=== PATIENT | female | born 2000 | race Caucasian/White ===

== ENCOUNTER → 2020-11-25 16:52 | Outpatient (BNVA) | payer SELFPAY | PROVIDERS: Family Provider Nurse Practitioner; PCP Nurse Practitioner; Visit Provider Nurse Practitioner | DX: R30.0 Dysuria (principal); N39.0 Urinary tract infection, site not specified | CPT/HCPCS: 81000 ==

== ENCOUNTER → 2022-02-17 12:18 | Outpatient (BNVA) | payer MEDICAID, SELFPAY | PROVIDERS: Family Provider Nurse Practitioner; PCP Nurse Practitioner; Visit Provider Nurse Practitioner Family | DX: R39.9 Unspecified symptoms and signs involving the genitourinary system (principal); N39.0 Urinary tract infection, site not specified | CPT/HCPCS: 81000 ==

== ENCOUNTER → 2022-03-01 08:28 | Outpatient (BNVA) | payer MEDICAID, SELFPAY | PROVIDERS: Family Provider Nurse Practitioner; PCP Nurse Practitioner; Visit Provider Psychiatry & Neurology Psychiatry | DX: F60.3 Borderline personality disorder (principal); F43.12 Post-traumatic stress disorder, chronic; F33.2 Major depressive disorder, recurrent severe without psychotic features; F41.1 Generalized anxiety disorder; N39.0 Urinary tract infection, site not specified | CPT/HCPCS: 99204 ==

== ENCOUNTER → 2022-03-30 15:12 | Outpatient (BNVA) | payer MEDICAID, SELFPAY | PROVIDERS: Family Provider Nurse Practitioner; PCP Nurse Practitioner; Visit Provider Psychiatry & Neurology Psychiatry | DX: F41.1 Generalized anxiety disorder (principal); F33.2 Major depressive disorder, recurrent severe without psychotic features; F43.12 Post-traumatic stress disorder, chronic; F60.3 Borderline personality disorder | CPT/HCPCS: 99214 ==

== ENCOUNTER → 2022-05-18 08:22 | Outpatient (BNVA) | payer MEDICAID, SELFPAY | PROVIDERS: Family Provider Nurse Practitioner; PCP Nurse Practitioner; Visit Provider Obstetrics & Gynecology | DX: Z12.4 Encounter for screening for malignant neoplasm of cervix (principal) | CPT/HCPCS: 81025; 88175 ==

== ENCOUNTER → 2023-01-10 14:33 | Outpatient (BNVA) | payer MEDICAID, SELFPAY | PROVIDERS: Family Provider Nurse Practitioner; Visit Provider Family Medicine | DX: R00.2 Palpitations (principal); Z13.6 Encounter for screening for cardiovascular disorders | CPT/HCPCS: 80053; 80061; 84443; 85025 ==

== ENCOUNTER 2023-02-06 22:23 | Emergency (ER) | payer MEDICAID, SELFPAY ==
[2023-02-06 22:30] VITALS: BP 143/93; PULSE 99; RESP 20; TEMP 36.8; O2SAT 96; BMI 34.4
--- NOTE | 2023-02-06 22:49 | W.ED.CHESTPA ---
HPI - Chest Pain General: Chief Complaint: Chest Pain Stated Complaint: Chest Pains Time Seen by Provider: 02/06/23 22:34 History of Present Illness: 22-year-old female comes in today with chest discomfort. Patient appears nontoxic. Patient has a history of chest pain that has been going on since August. Patient is scheduled to see dry cleaning machine operator on . Patient appears in mild pain. Patient has a history of anxiety, major depressive disorder, PTSD, and borderline personality. Associated symptoms: Deny dyspnea, fever(s), nausea or vomiting Review of Systems General: Reports: 10 or more systems reviewed and unremarkable except in HPI and below Const: Denies: fever(s) Card: Denies: chest pain Resp: Denies: dyspnea GI: Denies: nausea or vomiting : Denies: difficulty voiding Musc: Denies: back pain Skin/Breast: Denies: rash PFSH ED PFSH: Medical History (Updated 02/06/23 @ 23:53 by SIENA Jonas) Chiari malformation Type 1 - Diagnosed in 2017 - by [facility] Surgical History History of tonsillectomy Family History Grandmother Diabetes paternal Hypertension paternal Breast cancer, Onset Age: 56 paternal Father Hyperlipidemia Hypertension Denies family history of Colon cancer Ovarian cancer Clotting disorder Heart disease Anesthesia complication Bleeding disorder Uterine cancer Thyroid condition Stroke Social History Smoking and tobacco status: current every day smoker e-cigarettes E-Cigarette Details: vaporizer device and with nicotine E-cig/vape details: Refill/4 days. Quit status (tobacco): not considering quitting Second hand smoke exposure: No Smoking risk assessment/counseling performed?: No Alcohol intake: never Desire information about alcohol rehabilitation?: No Counseling given: No Desire information about substance/drug rehabilitation?: No Counseling given: No Physical Exam Const: COMMON NORMALS: alert HENMT: COMMON NORMALS: normocephalic HEAD & SCALP: normocephalic Neck/C-Spine: COMMON NORMALS: full ROM Resp: COMMON NORMALS: normal respiratory effort and clear to auscultation bilaterally AUSCULTATION: clear to auscultation bilaterally Cardio: COMMON NORMALS: regular rate, regular rhythm, S1 normal heart sound present and S2 normal heart sound present RATE: regular rate RHYTHM: regular rhythm HEART SOUNDS: S1 normal heart sound present and S2 normal heart sound present GI: COMMON NORMALS: Soft to palpation and non-tender PALPATION: Yes Soft to palpation : COMMON NORMALS: Yes no CVA tenderness BLADDER/KIDNEY EXAM: Yes no CVA tenderness Back/Pelvis: COMMON NORMALS: no CVA tenderness and thoracic and lumbar spine normal to inspection Extremity: COMMON NORMALS: no pedal edema Neuro: SENSORIUM/ORIENTATION: Yes alert Skin: COMMON NORMALS: turgor normal GENERAL SKIN EXAM: turgor normal Course Vital Signs: Vital signs: Vital Signs Temperature 98.2 F 02/06/23 22:30 Pulse Rate 86 02/06/23 23:02 Respiratory Rate 20 H 02/06/23 23:02 Blood Pressure 136/72 02/06/23 23:02 Pulse Oximetry 97 02/06/23 23:02 Oxygen Delivery Me thod 02/06/23 22:30 MDM - Chest Pain Medical Decision Making Patient presents with chest discomfort and pain. On exam patient appears nontoxic. Lungs are clear to auscultation. Heart rates regular in the 90s. No edema is noted in the extremities. Patient seems anxious. Differential diagnosis includes but not limited to anxiety, myocarditis, pleurodynia, malingering. EKG showed a sinus tachycardia with a rate in the 100s. Vital signs are normal except for some mild elevation in blood pressure. Chest x-ray was unremarkable. Laboratory values were unremarkable. Troponin, lipase, BNP were all within normal limits. Patient is stable to go home. Recommended continue evaluation with dry cleaning machine operator as scheduled. Return to ER as needed for worsening symptoms or new concerns. Patient reported understanding. Trial of Ativan 1 mg was given with no resolution of discomfort. Lab Data 02/06/23 22:44 02/06/23 22:44 Radiology Impressions Chest X-Ray 02/06/23 22:57 IMPRESSION: No acute findings. Laboratory Results WBC 7.6 10^3/uL (4.0-10.0) 02/06/23 22:44 RBC 4.57 10^6/uL (4.1-5.3) 02/06/23 22:44 Hgb 13.1 g/dL (11.5-15.3) 02/06/23 22:44 Hct 39.8 % (37.0-47.0) 02/06/23 22:44 MCV 87.1 fl (81-99) 02/06/23 22:44 MCH 28.7 pg (28.0-34.0) 02/06/23 22:44 MCHC 32.9 g/dL (30.0-36.0) 02/06/23 22:44 RDW 12.6 % (12.1-15.1) 02/06/23 22:44 Plt Count 284 10^3/cmm (130-400) 02/06/23 22:44 MPV 9.7 fL (7.4-10.4) 02/06/23 22:44 Neut % (Auto) 59.2 % 02/06/23 22:44 Lymph % (Auto) 32.8 % 02/06/23 22:44 [place] % (Auto) 6.2 % 02/06/23:44 Eos % (Auto) 1.4 % 02/06/23:44 Baso % (Auto) 0.3 % 02/06/23:44 Neut # (Auto) 4.49 10^3/uL (1.8-7.7) 02/06/23:44 Lymph # (Auto) 2.5 10^3/uL (0.8-4.8) 02/06/23:44 [place] # (Auto) 0.5 10^3/uL (0.2-0.9) 02/06/23:44 Eos # (Auto) 0.1 10^3/uL (0.0-0.8) 02/06/23 22:44 Baso # (Auto) 0.0 10^3/uL (0.0-0.1) 02/06/23:44 Nucleated RBC % (auto) 0 % 02/06/23:44 Nucleated RBCs # 0.0 /100WBC 02/06/23 22:44 Sodium 141 mmol/L (136-145) 02/06/23 22:44 Potassium 4.0 mmol/L (3.5-5.1) 02/06/23 22:44 Chloride 108 mmol/L (98-107) H 02/06/23 22:44 Carbon Dioxide 20 mmol/L (22-29) L 02/06/23 22:44 Anion Gap 17.0 (5-19) 02/06/23 22:44 BUN 11 mg/dL (6-20) 02/06/23 22:44 Creatinine 0.9 mg/dL (0.5-0.9) 02/06/23 22:44 GFR Calculation 76.9 mL/min (90-130) L 02/06/23 22:44 Glucose 78 mg/dL (65-115) 02/06/23 22:44 Calculated Osmolality 290 mOsm/kg (285-295) 02/06/23 22:44 Calcium 9.7 mg/dL (8.5-10.5) 02/06/23 22:44 Total Bilirubin 0.4 mg/dL (0.15-1.2) 02/06/23 22:44 AST 11 U/L (0-32) 02/06/23 22:44 ALT 9 U/L (0-33) 02/06/23 22:44 Alkaline Phosphatase 72 U/L (35-105) 02/06/23 22:44 Troponin T Gen 5 ng/L 8 ng/L (0-10) 02/06/23 22:44 C-Reactive Protein 3.0 mg/L (0.0-4.9) 02/06/23 22:44 NT-Pro-B Natriuret Pep 36 pg/mL (0-125) 02/06/23 22:44 Total Protein 6.6 g/dL (6.6-8.7) 02/06/23 22:44 Albumin 4.2 g/dL (3.5-5.2) 02/06/23 22:44 Globulin 2.4 g/dL (1.3-4.6) 02/06/23 22:44 Lipase 24 U/L (13-60) 02/06/23 22:44 Discharge Plan Discharge Patient Disposition: Home Clinical Impression: Chest pain Qualifiers: Chest pain type: unspecified Qualified Code(s): R07.9 - Chest pain, unspecified Condition: Stable Prescriptions: No Action acetaminophen [Tylenol Extra Strength] 500 mg tablet 1,000 mg PO BID PRN (Reason: fever or pain) Nexplanon 68 mg implant subdermal hydroxyzine HCl 50 mg tablet 100 mg PO .HS PRN (Reason: insomnia) Qty: 60 2RF sertraline [Zoloft] 50 mg tablet 50 mg PO DAILY Qty: 30 2RF Discharge Orders: Discharge ED (Routine); Ordered 02/06/23 Ordered By: Garth Zamarripa Referrals: Chana Santacruz DO [Primary Care Provider] - Discharge Diet: Usual diet Patient Instructions: Chest Pain (ED) Activity Restrictions/Additional Instructions: Home and rest. Drink lots of fluids. Follow-up with primary care in the morning. Return to ED for worsening symptoms such as severe chest pain, increased shortness of breath, blood in sputum, or high fever greater than 100.4. Follow-up with cardiac appointment as scheduled. Coding Level of Care Code ED Pin Inserter Regulator for Caroline Wilson
--- NOTE | 2023-02-06 22:57 | XRR_ITS ---
PROCEDURE INFORMATION: Exam: XR Chest Exam date and time: 02/06/2023 11:02 PM Age: 22 years old Clinical indication: Sternal or substernal pain; Additional info: Chest pain TECHNIQUE: Imaging protocol: Radiologic exam of the chest. Views: 1 view. COMPARISON: No relevant prior studies available. FINDINGS: Lungs: Unremarkable. No consolidation. Pleural spaces: Unremarkable. No pleural effusion. No pneumothorax. Heart/Mediastinum: Unremarkable. No cardiomegaly. Bones/joints: Unremarkable. XR/XR chest 1V portable [id number] IMPRESSION: No acute findings.
[2023-02-06 23:02] VITALS: BP 136/72; PULSE 86; RESP 20; O2SAT 97
[2023-02-06 23:06] LABS: Basophils % 0.3 %; Eosinophils # 0.1 10^3/uL (0.0-0.8); Eosinophils % 1.4 %; Hematocrit 39.8 % (37.0-47.0); Hemoglobin 13.1 g/dL (11.5-15.3); Lymphocytes # 2.5 10^3/uL (0.8-4.8); Lymphocytes % 32.8 %; Mean Corpuscular HGB Conc 32.9 g/dL (30.0-36.0); Mean Corpuscular Hemoglobin 28.7 pg (28.0-34.0); Mean Corpuscular Volume 87.1 fl (81-99); Mean Platelet Volume 9.7 fL (7.4-10.4); Monocytes # 0.5 10^3/uL (0.2-0.9); Monocytes % 6.2 %; Neutrophils # 4.49 10^3/uL (1.8-7.7); Neutrophils % 59.2 %; Nucleated Red Blood Cells % 0 %; Platelet Count 284 10^3/cmm (130-400); Red Blood Count 4.57 10^6/uL (4.1-5.3); Red Cell Distribution Width 12.6 % (12.1-15.1); White Blood Count 7.6 10^3/uL (4.0-10.0)
[2023-02-06] MEDS: LORazepam 1 mg Tablet PO (23:10)
[2023-02-06 23:20] LABS: Troponin T (5th) Once 8 ng/L (0-10)
[2023-02-06 23:28] LABS: Alanine Aminotransferase 9 U/L (0-33); Albumin Level 4.2 g/dL (3.5-5.2); Alkaline Phosphatase 72 U/L (35-105); Aspartate Amino Transferase 11 U/L (0-32); Blood Urea Nitrogen 11 mg/dL (6-20); Calcium 9.7 mg/dL (8.5-10.5); Carbon Dioxide 20 mmol/L (22-29); Chloride 108 mmol/L (98-107); Globulin 2.4 g/dL (1.3-4.6); Glomerular Filtration Rate 76.9 mL/min (90-130); Glucose 78 mg/dL (65-115); NT Pro B Type Natriuretic Pept 36 pg/mL (0-125); Osmolality Calculated 290 mOsm/kg (285-295); Sodium 141 mmol/L (136-145); Total Bilirubin 0.4 mg/dL (0.15-1.2); Total Protein 6.6 g/dL (6.6-8.7)
[2023-02-06 23:34] LABS: Lipase 24 U/L (13-60)
[2023-02-07 00:01] VITALS: BP 127/71; PULSE 90; RESP 18
== END 2023-02-07 00:02 | disposition home or self-care (01) ==
PROVIDERS: Emergency Provider Nurse Practitioner Family; PCP Family Medicine
DX: R07.9 Chest pain, unspecified (principal); F17.290 Nicotine dependence, other tobacco product, uncomplicated
CPT/HCPCS: 71045; 80053; 83690; 83880; 84484; 85025; 86140; 99285

== ENCOUNTER 2023-08-20 21:48 | Emergency (ER) | payer MEDICAID, SELFPAY ==
[2023-08-20 22:00] VITALS: BP 125/84; PULSE 121; RESP 18; TEMP 36.7; O2SAT 100; BMI 34.4
[2023-08-20 22:26] LABS: Basophils % 0.3 %; Eosinophils # 0.1 10^3/uL (0.0-0.8); Eosinophils % 1.2 %; Hematocrit 42.1 % (36-47); Lymphocytes # 2.6 10^3/uL (0.8-4.8); Lymphocytes % 28.8 %; Mean Corpuscular HGB Conc 32.3 g/dL (30-55); Mean Corpuscular Hemoglobin 28.4 pg (27-33); Mean Corpuscular Volume 87.9 fl (85-98); Mean Platelet Volume 9.6 fL (7.4-10.4); Monocytes # 0.5 10^3/uL (0.2-0.9); Monocytes % 5.5 %; Neutrophils # 5.69 10^3/uL (1.8-7.7); Nucleated Red Blood Cells % 0 %; Platelet Count 371 10^3/cmm (157-399); Red Blood Count 4.79 10^6/uL (3.85-5.65); Red Cell Distribution Width 13.1 % (12.1-15.1); White Blood Count 8.91 10^3/uL (3.29-11.43)
--- NOTE | 2023-08-20 22:27 | CTR_ITS ---
PROCEDURE INFORMATION: Exam: CT Abdomen And Pelvis With Contrast Exam date and time: 08/20/2023 10:44 PM Age: 23 years old Clinical indication: Abdominal pain; Localized; Right lower quadrant (rlq); Patient HX: Rlq pain with nausea TECHNIQUE: Imaging protocol: Computed tomography of the abdomen and pelvis with contrast. Radiation optimization: All CT scans at this facility use at least one of these dose optimization techniques: automated exposure control; mA and/or kV adjustment per patient size (includes targeted exams where dose is matched to clinical indication); or iterative reconstruction. Contrast material: OMNI 350; Contrast volume: 100 ml; Contrast route: INTRAVENOUS (IV); REPORTING DATA: Count of CT and Cardiac NM exams in prior 12 months: This patient has received 0 known CTs and 0 known cardiac nuclear medicine studies in the 12 months prior to the current study. COMPARISON: CR XR chest 1V portable [id number] 02/06/2023 11:02 PM RADIATION DOSE METRICS: Total DLP (mGy-cm): 900.86 FINDINGS: Liver: Normal. No mass. Gallbladder and bile ducts: Normal. No calcified stones. No ductal dilation. Pancreas: Normal. No ductal dilation. Spleen: Normal. No splenomegaly. Adrenal glands: Normal. No mass. Kidneys and ureters: Normal. No hydronephrosis. Stomach and bowel: Unremarkable. No obstruction. No mucosal thickening. Appendix: No evidence of appendicitis. Intraperitoneal space: Unremarkable. No free air. No significant fluid collection. Vasculature: Unremarkable. No abdominal aortic aneurysm. Lymph nodes: Unremarkable. No enlarged lymph nodes. Urinary bladder: Unremarkable as visualized. Reproductive: Unremarkable as visualized. Bones/joints: Unremarkable. No acute fracture. Soft tissues: Unremarkable. CT/CT abdomen pelvis w con* [id number] IMPRESSION: 1. No bowel obstruction or inflammatory process associated with the bowel. 2. No free air or significant free fluid in the abdomen or pelvis. 3. The appendix images normally.
--- NOTE | 2023-08-20 22:28 | ED_ITS ---
HPI - Abdominal Pain General: Chief Complaint: Abdominal Pain Stated Complaint: ABD Pain Time Seen by Provider: 08/20/23 22:19 Source: patient Mode of arrival: ambulatory Limitations: no limitations History of Present Illness: 23-year-old female states that she has been having abdominal pain over the last 2 days states it started in her umbilicus states that today she started having pain in the right lower quadrant. States pain is sharp in nature rates it a 7 out of 10. She has had no vomiting no diarrhea denies any fevers. States is worse with movement improved with rest Associated Symptoms: Denies chills, diarrhea, dysuria, fever(s), nausea and vomiting Review of Systems Const: Denies: fever(s), chills, body aches or change in appetite ENMT: Denies: throat pain or dental pain Card: Denies: chest pain Resp: Denies: dyspnea GI: Reports: abdominal pain; Denies: nausea, vomiting or diarrhea : Denies: dysuria Musc: Denies: neck pain or back pain Skin/Breast: Denies: rash Neuro: Denies: headache(s) PFSH ED PFSH: Medical History Chiari malformation Type 1 - Diagnosed in 2017 - [address] [facility] [facility] Surgical History History of tonsillectomy Family History Grandmother Diabetes paternal Hypertension paternal Breast cancer, Onset Age: 56 paternal Father Hyperlipidemia Hypertension Denies family history of Colon cancer Ovarian cancer Clotting disorder Heart disease Anesthesia complication Bleeding disorder Uterine cancer Thyroid disease Stroke Social History Smoking and tobacco/nicotine status: current every day tobacco/nicotine user e- cigarettes E-Cigarette Details: vaporizer device and with nicotine E-cig/vape details: Refill/4 days. Quit status (tobacco/nicotine): not considering quitting Second hand smoke exposure: No Alcohol intake: never Substance/Drug Use: never Physical Exam Const: COMMON NORMALS: no acute distress, patient oriented x3 and healthy appearing HENMT: COMMON NORMALS: normocephalic and atraumatic HEAD & SCALP: normocephalic and atraumatic Neck/C-Spine: COMMON NORMALS: full ROM and supple Chest: COMMONS NORMALS: normal inspection of the chest and normal palpation of entire chest wall Resp: COMMON NORMALS: normal respiratory effort, No retractions, No use of accessory muscles and clear to auscultation bilaterally AUSCULTATION: clear to auscultation bilaterally Cardio: COMMON NORMALS: regular rate, regular rhythm and No murmurs present (Cardio) RATE: regular rate RHYTHM: regular rhythm GI: COMMON NORMALS: Normal to inspection, nondistended, normoactive bowel sounds present, Soft to palpation and no masses PALPATION: Yes Soft to palpation and Yes Tenderness to palpation present (GI) Details: RLQ Extremity: COMMON NORMALS: normal to inspection and full ROM Neuro: COMMON NORMALS: patient oriented x3, moves all extremities and no focal motor deficits Psych: COMMON NORMALS: mental status grossly normal, Normal thought process present and cooperative THOUGHT PROCESS: Normal thought process present Skin: COMMON NORMALS: no rashes or lesions noted and no wounds GENERAL SKIN EXAM: no rashes or lesions noted Course Vital Signs: Vital signs: Vital Signs Temperature 98.1 F 08/20/23 22:00 Pulse Rate 94 08/20/23 23:56 Respiratory Rate 16 08/20/23 23:56 Blood Pressure 149/87 08/20/23 23:56 Pulse Oximetry 98 08/20/23 23:56 Oxygen Delivery Me thod Room Air 08/20/23 23:33 MDM - Abdominal Pain Medical Decision Making Patient presents here with abdominal pain blood work CT scan here are normal she feels improved here she is stable for discharge she is to follow-up with PCP and return if worsening. Medical Records I reviewed the patient's medical records. Lab Data I reviewed the patient's lab results. 08/20/23 22:17 08/20/23 22:17 Labs/Radiology: Radiology Impressions Abdomen/Pelvis CT 08/20/23 22:27 IMPRESSION: 1. No bowel obstruction or inflammatory process associated with the bowel. 2. No free air or significant free fluid in the abdomen or pelvis. 3. The appendix images normally. Laboratory Results WBC 8.91 10^3/uL (3.29-11.43) 08/20/23 22:17 RBC 4.79 10^6/uL (3.85-5.65) 08/20/23 22:17 Hgb 13.60 g/dL (11.27-16.99) 08/20/23 22:17 Hct 42.1 % (36-47) 08/20/23 22:17 MCV 87.9 fl (85-98) 08/20/23 22:17 MCH 28.4 pg (27-33) 08/20/23 22:17 MCHC 32.3 g/dL (30-55) 08/20/23 22:17 RDW 13.1 % (12.1-15.1) 08/20/23 22:17 Plt Count 371 10^3/cmm (157-399) 08/20/23 22:17 MPV 9.6 fL (7.4-10.4) 08/20/23 22:17 Neut % (Auto) 64.0 % 08/20/23 22:17 Lymph % (Auto) 28.8 % 08/20/23 22:17 [place] % (Auto) 5.5 % 08/20/23 22:17 Eos % (Auto) 1.2 % 08/20/23 22:17 Baso % (Auto) 0.3 % 08/20/23 22:17 Neut # (Auto) 5.69 10^3/uL (1.8-7.7) 08/20/23 22:17 Lymph # (Auto) 2.6 10^3/uL (0.8-4.8) 08/20/23 22:17 [place] # (Auto) 0.5 10^3/uL (0.2-0.9) 08/20/23 22:17 Eos # (Auto) 0.1 10^3/uL (0.0-0.8) 08/20/23 22:17 Baso # (Auto) 0.0 10^3/uL (0.0-0.1) 08/20/23 22:17 Nucleated RBC % (auto) 0 % 08/20/23: Nucleated RBCs # 0.0 /100WBC 08/20/23 22:17 Sodium 136 mmol/L (136-145) 08/20/23 22:17 Potassium 4.2 mmol/L (3.5-5.1) 08/20/23 22: Chloride 100 mmol/L (98-107) 08/20/23 22:17 Carbon Dioxide 24 mmol/L (22-29) 08/20/23 22:17 Anion Gap 16.2 (5-19) 08/20/23 22:17 BUN 7 mg/dL (6-20) 08/20/23 22:17 Creatinine 0.7 mg/dL (0.5-0.9) 08/20/23 22:17 GFR Calculation 102.0 mL/min (90-130) 08/20/23 22:17 Glucose 99 mg/dL (65-115) 08/20/23 22:17 Calculated Osmolality 280 mOsm/kg (285-295) L 08/20/23 22:17 Calcium 9.3 mg/dL (8.5-10.5) 08/20/23 22:17 Total Bilirubin 0.6 mg/dL (0.15-1.2) 08/20/23 22:17 AST 11 U/L (0-32) 08/20/23 22:17 ALT 10 U/L (0-33) 08/20/23 22:17 Alkaline Phosphatase 76 U/L (35-105) 08/20/23 22:17 Total Protein 7.1 g/dL (6.6-8.7) 08/20/23 22:17 Albumin 4.4 g/dL (3.5-5.2) 08/20/23 22:17 Globulin 2.7 g/dL (1.3-4.6) 08/20/23 22:17 Lipase 21 U/L (13-60) 08/20/23 22:17 HCG, Qual Negative (Negative) 08/20/23 22:17 Urine Color Yellow (Yellow) 08/20/23 22:56 Urine Appearance Hazy (CLEAR) A 08/20/23 22:56 Urine pH 5 (5-7) 08/20/23 22:56 Ur Specific [place] 1.015 (1.005-1.030) 08/20/23 22:56 Urine Protein Trace (Negative) 08/20/23 22:56 Urine Glucose (UA) Norm (Normal) 08/20/23 22:56 Urine Ketones Negative (Negative) 08/20/23 22:56 Urine Blood Trace (Negative) H 08/20/23 22:56 Urine Nitrate Negative (Negative) 08/20/23 22:56 Urine Bilirubin Neg (Negative) 08/20/23 22:56 Urine Urobilinogen Neg mg/dL (Negative) 08/20/23 22:56 Ur Leukocyte Esterase Negative (Negative) 08/20/23 22:56 Urine RBC 0-4 /hpf (0-2) H 08/20/23 22:56 Urine WBC 0-4 /hpf (0-5) H 08/20/23 22:56 Ur Squamous Epith Cells 15-25 /hpf (0-5) H 08/20/23 22:56 Amorphous Sediment 2+ /hpf 08/20/23 22:56 Urine Bacteria 1+ /hpf (NONE) H 08/20/23 22:56 Urine Mucus 2+ /hpf 08/20/23 22:56 All radiology interpretation(s) finalized by discharge Discharge Plan Discharge Patient Disposition: Home Clinical Impression: Abdominal pain Condition: Stable Prescriptions: New ondansetron 4 mg tablet,disintegrating 4 mg PO Q6H PRN (Reason: nausea and vomiting) Qty: 14 0RF No Action acetaminophen [Tylenol Extra Strength] 500 mg tablet 1,000 mg PO BID PRN (Reason: fever or pain) Nexplanon 68 mg implant subdermal metoprolol tartrate 25 mg tablet 12.5 mg PO BID Qty: 90 1RF trazodone 50 mg tablet 100 mg PO .HS PRN (Reason: insomnia) Qty: 60 2RF hydroxyzine HCl 50 mg tablet 50 mg PO QID PRN (Reason: insomnia/anxiety) Qty: 120 2RF sertraline 100 mg tablet 200 mg PO DAILY Qty: 60 2RF Discharge Orders: Discharge ED (Routine); Ordered 08/20/23 Ordered By: Gadiel Forte Referrals: Chana Santacruz DO [Primary Care Provider] - 1-3 days Discharge Diet: Advance as tolerated Discharge Activity: Resume usual activity Patient Instructions: Abdominal Pain (ED) Coding Level of Care Code ED Intelligence Analyst for Caroline Wilson
[2023-08-20 22:37] VITALS: BP 146/109; PULSE 104; RESP 16; O2SAT 100
[2023-08-20] MEDS: sodium chloride 0.9% 1,000 ML 999 ML IV (22:37)
[2023-08-20] MEDS: ondansetron 2 mg/ML SDV 2 mL 4 MG IVP (22:37)
[2023-08-20] MEDS: morphine 4 mg/mL SDV 1 mL IVP (22:37)
[2023-08-20 22:38] LABS: HCG, Serum Qual Negative (Negative)
[2023-08-20] MEDS: iohexol 350 mg/mL 500 mL Btl (per mL) IV (22:46)
[2023-08-20 22:47] LABS: Alanine Aminotransferase 10 U/L (0-33); Albumin Level 4.4 g/dL (3.5-5.2); Alkaline Phosphatase 76 U/L (35-105); Anion Gap 16.2 (5-19); Aspartate Amino Transferase 11 U/L (0-32); Blood Urea Nitrogen 7 mg/dL (6-20); Calcium 9.3 mg/dL (8.5-10.5); Carbon Dioxide 24 mmol/L (22-29); Chloride 100 mmol/L (98-107); Creatinine Clr Calc Pharmacy 149.0998; Globulin 2.7 g/dL (1.3-4.6); Glucose 99 mg/dL (65-115); Lipase 21 U/L (13-60); Osmolality Calculated 280 mOsm/kg (285-295); Potassium 4.2 mmol/L (3.5-5.1); Sodium 136 mmol/L (136-145); Total Bilirubin 0.6 mg/dL (0.15-1.2); Total Protein 7.1 g/dL (6.6-8.7)
[2023-08-20 23:19] LABS: Add Urine Microscopic? YES; Bilirubin Urine Neg (Negative); Blood Urine Trace (Negative); Glucose Urine UA Norm (Normal); Ketones Urine Negative (Negative); Leukocyte Esterase Urine Negative (Negative); Nitrate Urine Negative (Negative); Protein Urine Trace (Negative); Specific Gravity, Urine 1.015 (1.005-1.030); Urine Appearance Hazy (CLEAR); Urine Color Yellow (Yellow); Urobilinogen Urine Neg (Negative); pH Urine 5 (5-7)
[2023-08-20 23:20] LABS: Add Urine Culture? No; Amorphous Sediment Urine 2+ /hpf; Bacteria Urine 1+ /hpf; Mucus Urine 2+ /hpf; RBC Urine 0-4 /hpf (0-2); Squamous Epithelial Cell Urine 15-25 /hpf (0-5); WBC Urine 0-4 /hpf (0-5)
[2023-08-20 23:24] VITALS: BP 108/80; PULSE 92; RESP 18; O2SAT 100
[2023-08-20 23:33] VITALS: BP 149/87; PULSE 99; RESP 16; O2SAT 98
[2023-08-20 23:56] VITALS: BP 149/87; PULSE 94; RESP 16; O2SAT 98
== END 2023-08-20 23:57 | disposition home or self-care (01) ==
PROVIDERS: Emergency Provider Emergency Medicine; PCP Family Medicine
DX: R10.31 Right lower quadrant pain (principal); F17.290 Nicotine dependence, other tobacco product, uncomplicated
CPT/HCPCS: 36415; 74177; 80053; 81001; 83690; 84703; 85025; 96361; 96374; 96375; 99285; J2270; J2405; J7030; Q9967

== ENCOUNTER 2023-11-08 16:22 | Outpatient (CLI) | payer MEDICAID, SELFPAY ==
--- NOTE | 2023-11-08 16:45 | MR_ITS ---
WS: [id number] MRI HEAD WITHOUT CONTRAST TECHNIQUE: Sagittal T1, T2 axial, T2 axial FLAIR, axial and coronal T1 images, axial susceptibility w eighted imaging, axial diffusion weighted images, and coronal T2 images were obtained. CLINICAL INFORMATION: change in migraine COMPARISON: MRI 2017 FINDINGS: Stable Chiari I malformation. Mild crowding of the foramen magnum is similar to previous. Normal four th ventricle. No hydrocephalus. Recommend MRI of the cervical spine to assess for syrinx considering Chiari malformation. No restricted diffusion to suggest acute ischemia. No suspicious intracranial signal normalities. Nor mal vascular flow voids at the skull base. No extra-axial fluid collections. Paranasal sinuses and ma stoid air cells are well aerated. Normal posterior nasopharynx. No hemosiderin on the susceptibility weighted images. Normal optic chiasm and pituitary infundibulum. IMPRESSION: 1. Stable Chiari I malformation with mild crowding of the foramen magnum 2. Recommend MRI of the cervical spine to assess for syrinx. 3. Normal fourth ventricle. No hydrocephalus. 4. No hemosiderin on the susceptibly weighted images. 5. No other significant changes compared to previous.
== END 2023-11-08 16:23 | disposition home or self-care (01) ==
LOC: RAD 16:22
PROVIDERS: PCP Family Medicine; Visit Provider Family Medicine
DX: G43.119 Migraine with aura, intractable, without status migrainosus (principal); G93.5 Compression of brain
CPT/HCPCS: 70551

== ENCOUNTER 2024-01-05 14:53 | Outpatient (CLI) | payer MEDICAID, SELFPAY ==
--- NOTE | 2024-01-05 15:15 | MR_ITS ---
WS: [id number] MR CERVICAL SPINE WO/W COMPARISON: MRI head 11/08/2023 HISTORY: chiari malformation - rule out syrinx TECHNIQUE: Sagittal T1, T2 and T2 inversion recovery; axial T2, T2 gradient and fiesta. Post gadolini um imaging with fat saturation technique. FINDINGS: Straightening of the normal cervical lordosis. No high grade central canal narrowing. Cord signal is normal. No evidence of cervical cord syrinx. No abnormal gadolinium enhancement. Stable Chiari I malf ormation. Disc bulging worse at C3-C4 with slight contact of the cervical cord. C2-3: Spinal canal and foramen are patent. C3-4: Small central disc protrusion with slight indentation of the cervical cord. Spinal canal remain s patent. Mild facet arthropathy. Foramen are patent. C4-5: LEFT eccentric disc osteophyte ridging. Mild LEFT foraminal narrowing. Spinal canal and RIGHT f oramen are patent. Mild facet arthropathy. C5-6: Mild disc bulge with a tiny RIGHT paracentral protrusion with a small annular fissure. Spinal c anal and foramen are patent. Mild facet arthropathy. C6-7: LEFT eccentric disc osteophytic ridging. Mild LEFT and no significant RIGHT foraminal narrowing . Spinal canal is patent. Mild LEFT facet arthropathy. C7-T1: LEFT eccentric osteophytic ridging. Mild LEFT and no significant RIGHT foraminal narrowing. Sp inal canal is patent. IMPRESSION: 1. Straightening of the normal cervical lordosis. No high-grade central canal narrowing. Cord signa l is normal. 2. No evidence of cord syrinx. No abnormal gadolinium enhancement. 3. Shallow central disc osteophyte protrusion C3-4 with slight contact of the cervical cord. Spinal canal remains patent. 4. Tiny shallow RIGHT paracentral protrusion C5-C6 with a tiny annular fissure. 5. Mild bony foraminal narrowing worse at LEFT C4-5, LEFT C6-7 and LEFT C7-T1.
[2024-01-05] MEDS: gadobenate dimeglumine 20 mL vial IV (16:25)
== END 2024-01-05 14:54 | disposition home or self-care (01) ==
LOC: RAD 14:53
PROVIDERS: PCP Family Medicine; Visit Provider Family Medicine
DX: G93.5 Compression of brain (principal); M50.21 Other cervical disc displacement, high cervical region; M48.03 Spinal stenosis, cervicothoracic region
CPT/HCPCS: 72156; A9577

== ENCOUNTER 2024-04-24 21:07 | Emergency (ER) | payer MEDICAID, SELFPAY ==
[2024-04-24 21:29] VITALS: BP 144/90; PULSE 99; RESP 16; TEMP 36.7; O2SAT 99; BMI 36.0
[2024-04-24 22:16] LABS: Basophils % 0.2 %; Eosinophils # 0.1 10^3/uL (0.0-0.8); Eosinophils % 1.1 %; Hematocrit 39.7 % (36-47); Lymphocytes # 2.7 10^3/uL (0.8-4.8); Lymphocytes % 29.5 %; Mean Corpuscular Hemoglobin 28.7 pg (27-33); Mean Corpuscular Volume 86.9 fl (85-98); Mean Platelet Volume 9.3 fL (7.4-10.4); Monocytes # 0.5 10^3/uL (0.2-0.9); Monocytes % 5.3 %; Neutrophils # 5.83 10^3/uL (1.8-7.7); Neutrophils % 63.7 %; Nucleated Red Blood Cells % 0 %; Platelet Count 323 10^3/cmm (157-399); Red Blood Count 4.57 10^6/uL (3.85-5.65); Red Cell Distribution Width 12.8 % (12.1-15.1); White Blood Count 9.16 10^3/uL (3.29-11.43)
[2024-04-24 22:34] LABS: Alanine Aminotransferase 10 U/L (0-33); Albumin Level 3.9 g/dL (3.5-5.2); Alkaline Phosphatase 79 U/L (35-105); Anion Gap 10.6 (5-19); Aspartate Amino Transferase 11 U/L (0-32); Blood Urea Nitrogen 8 mg/dL (6-20); Calcium 8.9 mg/dL (8.5-10.5); Carbon Dioxide 24 mmol/L (22-29); Chloride 105 mmol/L (98-107); Creatinine Clr Calc Pharmacy 152.6188; Globulin 2.8 g/dL (1.3-4.6); Glucose 90 mg/dL (65-115); Lipase 21 U/L (13-60); Osmolality Calculated 280 mOsm/kg (285-295); Potassium 3.6 mmol/L (3.5-5.1); Sodium 136 mmol/L (136-145); Total Bilirubin 0.3 mg/dL (0.15-1.2); Total Protein 6.7 g/dL (6.6-8.7)
[2024-04-24 22:46] LABS: HCG, Serum Qual Negative (Negative)
[2024-04-24 23:36] VITALS: BP 142/98; PULSE 84; O2SAT 98
[2024-04-24 23:47] LABS: Add Urine Culture? No; Add Urine Microscopic? YES; Bacteria Urine 3+ /hpf; Bilirubin Urine Neg (Negative); Blood Urine 2+ (Negative); Glucose Urine UA Norm (Normal); Ketones Urine Negative (Negative); Leukocyte Esterase Urine Negative (Negative); Nitrate Urine Negative (Negative); Protein Urine Neg (Negative); Urine Appearance Slightly Cloudy (CLEAR); Urine Color Yellow (Yellow); Urobilinogen Urine Neg (Negative); pH Urine 5 (5-7)
--- NOTE | 2024-04-24 23:52 | W.ED.ABDPA2 ---
Documented by User: CODY Miranda 04/24/24 23:58 HPI - Abdominal Pain General: Chief Complaint: Abdominal Pain Stated Complaint: right abd pain Time Seen by Provider: 04/24/24 23:36 Source: patient Mode of arrival: ambulatory Limitations: no limitations History of Present Illness: Patient is a 23-year-old female presenting to the emergency department complaining of right-sided abdominal pain for the past couple days. She states she had this in the past, last August, where she was seen in the emergency department but states that nothing was found wrong. She notes the pain now has become more constant since onset, and currently is sharp and located to the right upper and lower quadrant. She states that it does seem to be exacerbated by eating. She still has her gallbladder and appendix. She does report a family history of kidney stones, but does state that she has never had one herself. Currently she is denying any urinary symptoms, fever, diaphoresis, chest pain, breathing difficulties, or other symptoms at this time. MD elicited complaint: abdominal pain Onset (ago): day(s) Pain Consistency: constant Location: RUQ and RLQ Severity: severe Quality: sharp Radiation: none Exacerbating factors: eating Relieving factors: nothing Associated Symptoms: Reports nausea; Denies bloating, change in stool character, chills, constipation, diarrhea, dysuria, fever(s), hematochezia and vomiting Review of Systems General: Reports: 10 or more systems reviewed and unremarkable except in HPI and below Const: Denies: fever(s), chills, change in appetite, change in weight or diaphoresis ENMT: Denies: throat pain or hoarseness Card: Denies: chest pain, palpitations or lightheadedness Resp: Denies: dyspnea, productive cough or wheezing GI: Reports: abdominal pain and nausea; Denies: vomiting, diarrhea, constipation, bloating, change in stool character or hematochezia : Denies: flank pain, difficulty voiding, dysuria, urinary frequency or urinary urgency Musc: Denies: neck pain or back pain Skin/Breast: Denies: rash or new lesions Neuro: Denies: headache(s) or dizziness PFSH ED PFSH: Medical History Chiari malformation Type 1 - Diagnosed in 2017 - by [facility] Surgical History History of tonsillectomy Family History Grandmother Diabetes paternal Hypertension paternal Breast cancer, Onset Age: 56 paternal Father Hyperlipidemia Hypertension Denies family history of Colon cancer Ovarian cancer Clotting disorder Heart disease Anesthesia complication Bleeding disorder Uterine cancer Thyroid disease Stroke Social History Smoking and tobacco/nicotine status: current every day tobacco/nicotine user e-cigarettes E-Cigarette Details: vaporizer device and with nicotine E-cig/vape details: Refill/4 days. Quit status (tobacco/nicotine): not considering quitting Second hand smoke exposure: No Alcohol intake: never Substance/Drug Use: never Physical Exam Const: COMMON NORMALS: no acute distress, patient oriented x3, no limitations, healthy appearing, alert and well nourished GENERAL APPEARANCE: cooperative NUTRITIONAL APPEARANCE: obese ORIENTATION/CONSCIOUSNESS: Yes awake HENMT: COMMON NORMALS: normocephalic, atraumatic, hearing grossly normal bilaterally, external ears normal, Normal external nose present, Normal nasal mucous membranes and turbinates present and moist oral mucous membranes HEAD & SCALP: normocephalic and atraumatic NOSE: Normal external nose present and Normal nasal mucous membranes and turbinates present EXTERNAL EAR: Yes external ears normal Eye: COMMON NORMALS: Equal, round and reactive pupils present, EOMs intact bilaterally, conjunctivae normal and normal visual andrews by confrontation CONJUNCTIVA: Yes conjunctivae normal PUPIL: Yes Equal, round and reactive pupils present Neck/C-Spine: COMMON NORMALS: full ROM, supple, no meningeal signs and no JVD Resp: COMMON NORMALS: normal respiratory effort, No retractions, No use of accessory muscles and clear to auscultation bilaterally AUSCULTATION: clear to auscultation bilaterally, no crackles, no rales, no rhonchi and no wheezes Cardio: COMMON NORMALS: no JVD, regular rate, regular rhythm, S1 normal heart sound present, S2 normal heart sound present, No gallops present (Cardio), No clicks present (Cardio), No murmurs present (Cardio), No rub (Cardio) and Peripheral pulses 2+ throughout RATE: regular rate RHYTHM: regular rhythm HEART SOUNDS: S1 normal heart sound present and S2 normal heart sound present PERIPHERAL PULSES: Peripheral pulses 2+ throughout GI: COMMON NORMALS: Normal to inspection, nondistended, normoactive bowel sounds present, Soft to palpation, No hepatosplenomegaly present and no masses INSPECTION: Yes central obesity AUSCULTATION: Yes normoactive bowel sounds PALPATION: Yes Soft to palpation, Yes Tenderness to palpation present (GI) (Diffuse abdominal tenderness, worse on the right side), Yes Guarding due to palpation present (GI) (Voluntary), No Rigid due to palpation and Yes No hepatosplenomegaly present RECTAL EXAM: deferred OTHER: Negative Boss sign, negative McBurney's point tenderness : COMMON NORMALS: Yes no CVA tenderness BLADDER/KIDNEY EXAM: Yes no CVA tenderness Back/Pelvis: COMMON NORMALS: no CVA tenderness Extremity: COMMON NORMALS: normal to inspection and full ROM Neuro: COMMON NORMALS: patient oriented x3, moves all extremities, no focal motor deficits and no sensory deficits noted SENSORIUM/ORIENTATION: Yes alert MENINGEAL SIGNS: Yes no meningeal signs Psych: COMMON NORMALS: mental status grossly normal, cooperative and speech normal SPEECH: Yes normal speech Skin: COMMON NORMALS: no rashes or lesions noted GENERAL SKIN EXAM: no rashes or lesions noted Course Vital Signs: Vital signs: Vital Signs Temperature 98.1 F 04/24/24 21:29 Pulse Rate 87 04/25/24 01:00 Respiratory Rate 16 04/25/24 01:00 Blood Pressure 132/83 04/25/24 01:20 Pulse Oximetry 97 04/25/24 01:00 MDM - Abdominal Pain Lab Data 04/24/24 22:12 04/24/24 22:12 Labs/Radiology: Radiology Impressions Abdomen/Pelvis CT 04/24/24 23:53 IMPRESSION: 1. No bowel obstruction or inflammatory process associated with the bowel. 2. No free air or significant free fluid in the abdomen or pelvis. 3. No evidence of appendicitis. Laboratory Results WBC 9.16 10^3/uL (3.29-11.43) 04/24/24 22:12 RBC 4.57 10^6/uL (3.85-5.65) 04/24/24 22:12 Hgb 13.10 g/dL (11.27-16.99) 04/24/24 22:12 Hct 39.7 % (36-47) 04/24/24 22:12 MCV 86.9 fl (85-98) 04/24/24 22:12 MCH 28.7 pg (27-33) 04/24/24 22:12 MCHC 33.0 g/dL (30-55) 04/24/24 22:12 RDW 12.8 % (12.1-15.1) 04/24/24 22:12 Plt Count 323 10^3/cmm (157-399) 04/24/24 22:12 MPV 9.3 fL (7.4-10.4) 04/24/24 22:12 Neut % (Auto) 63.7 % 04/24/24 22:12 Lymph % (Auto) 29.5 % 04/24/24 22:12 [place] % (Auto) 5.3 % 04/24/24 22:12 Eos % (Auto) 1.1 % 04/24/24 22:12 Baso % (Auto) 0.2 % 04/24/24 22:12 Neut # (Auto) 5.83 10^3/uL (1.8-7.7) 04/24/24 22:12 Lymph # (Auto) 2.7 10^3/uL (0.8-4.8) 04/24/24 22:12 [place] # (Auto) 0.5 10^3/uL (0.2-0.9) 04/24/24 22:12 Eos # (Auto) 0.1 10^3/uL (0.0-0.8) 04/24/24 22:12 Baso # (Auto) 0.0 10^3/uL (0.0-0.1) 04/24/24 22:12 Nucleated RBC % (auto) 0 % 04/24/24 22:12 Nucleated RBCs # 0.0 /100WBC 04/24/24 22:12 Sodium 136 mmol/L (136-145) 04/24/24 22:12 Potassium 3.6 mmol/L (3.5-5.1) 04/24/24 22:12 Chloride 105 mmol/L (98-107) 04/24/24 22:12 Carbon Dioxide 24 mmol/L (22-29) 04/24/24 22:12 Anion Gap 10.6 (5-19) 04/24/24 22:12 BUN 8 mg/dL (6-20) 04/24/24 22:12 Creatinine 0.7 mg/dL (0.5-0.9) 04/24/24 22:12 GFR Calculation 102.0 mL/min (90-130) 04/24/24 22:12 Glucose 90 mg/dL (65-115) 04/24/24 22:12 Calculated Osmolality 280 mOsm/kg (285-295) L 04/24/24 22:12 Calcium 8.9 mg/dL (8.5-10.5) 04/24/24 22:12 Total Bilirubin 0.3 mg/dL (0.15-1.2) 04/24/24 22:12 AST 11 U/L (0-32) 04/24/24 22:12 ALT 10 U/L (0-33) 04/24/24 22:12 Alkaline Phosphatase 79 U/L (35-105) 04/24/24 22:12 Total Protein 6.7 g/dL (6.6-8.7) 04/24/24 22:12 Albumin 3.9 g/dL (3.5-5.2) 04/24/24 22:12 Globulin 2.8 g/dL (1.3-4.6) 04/24/24 22:12 Lipase 21 U/L (13-60) 04/24/24 22:12 HCG, Qual Negative (Negative) 04/24/24 22:12 Urine Color Yellow (Yellow) 04/24/24 23:30 Urine Appearance Slightly cloudy (CLEAR) 04/24/24 23:30 Urine pH 5 (5-7) 04/24/24 23:30 Ur Specific [place] 1.020 (1.005-1.030) 04/24/24 23:30 Urine Protein Neg (Negative) 04/24/24 23:30 Urine Glucose (UA) Norm (Normal) 04/24/24 23:30 Urine Ketones Negative (Negative) 04/24/24 23:30 Urine Blood 2+ (Negative) H 04/24/24 23:30 Urine Nitrate Negative (Negative) 04/24/24 23:30 Urine Bilirubin Neg (Negative) 04/24/24 23:30 Urine Urobilinogen Neg mg/dL (Negative) 04/24/24 23:30 Ur Leukocyte Esterase Negative (Negative) 04/24/24 23:30 Urine RBC 5-10 /hpf (0-2) H 04/24/24 23:30 Urine WBC None /hpf (0-5) 04/24/24 23:30 Ur Squamous Epith Cells 10-15 /hpf (0-5) H 04/24/24 23:30 Amorphous Sediment Not Reportable 04/24/24 23:30 Urine Bacteria 3+ /hpf (NONE) H 04/24/24 23:30 Discharge Plan Discharge Patient Disposition: Home Clinical Impression: Nausea & vomiting Qualifiers: Vomiting type: unspecified Qualified Code(s): R11.2 - Nausea with vomiting, unspecified Abdominal pain Qualifiers: Abdominal location: unspecified location Qualified Code(s): R10.9 - Unspecified abdominal pain Condition: Stable Prescriptions: New ondansetron HCl 4 mg tablet 4 mg PO Q8H PRN (Reason: nausea and vomiting) Qty: 14 0RF No Action acetaminophen [Tylenol Extra Strength] 500 mg tablet 1,000 mg PO BID PRN (Reason: fever or pain) Nexplanon 68 mg implant subdermal topiramate [Topamax] 25 mg tablet 25 mg PO BID Qty: 180 1RF metoprolol tartrate 25 mg tablet 12.5 mg PO BID Qty: 90 1RF duloxetine 60 mg capsule,delayed release(DR/EC) 60 mg PO DAILY Qty: 90 0RF trazodone 50 mg tablet 100 mg PO .HS PRN (Reason: insomnia) Qty: 180 0RF Discharge Orders: Discharge ED (Routine); Ordered 04/25/24 Ordered By: Charlie Coto Referrals: Chana Santacruz DO [Primary Care Provider] - 1 week Patient Instructions: Acute Nausea and Vomiting (DC), Abdominal Pain (ED) Activity Restrictions/Additional Instructions: Your workup in ER included lab work as well as CT scan of your abdomen pelvis did not show any acute abnormalities, you are prescribed a prescription of Zofran to help with the nausea and vomiting. Please follow-up with your family practitioner for the neck 7 days for further evaluation and treatment as needed. Coding Level of Care Code ED [employer] for [facility] Documented by User: Charlie Coto DO 04/25/24 02:25 HPI - Abdominal Pain General: Chief Complaint: Abdominal Pain Stated Complaint: right abd pain Time Seen by Provider: 04/24/24 23:36 PFSH ED PFSH: Medical History Chiari malformation Type 1 - Diagnosed in 2017 - [address] [facility] Surgical History History of tonsillectomy Family History Grandmother Diabetes paternal Hypertension paternal Breast cancer, Onset Age: 56 paternal Father Hyperlipidemia Hypertension Denies family history of Colon cancer Ovarian cancer Clotting disorder Heart disease Anesthesia complication Bleeding disorder Uterine cancer Thyroid disease Stroke Social History Smoking and tobacco/nicotine status: current every day tobacco/nicotine user e-cigarettes E-Cigarette Details: vaporizer device and with nicotine E-cig/vape details: Refill/4 days. Quit status (tobacco/nicotine): not considering quitting Second hand smoke exposure: No Alcohol intake: never Substance/Drug Use: never Course Vital Signs: Vital signs: Vital Signs Temperature 98.1 F 04/24/24 21:29 Pulse Rate 87 04/25/24 01:00 Respiratory Rate 16 04/25/24 01:00 Blood Pressure 132/83 04/25/24 01:20 Pulse Oximetry 97 04/25/24 01:00 MDM - Abdominal Pain Medical Decision Making patient turned over to my care shift change, lab work reviewed, waiting on CT scan to come back, once CT scan was back showed no acute inflammatory process, patient be discharged home to follow-up with PCP for further evaluation testing. Lab Data 04/24/24 22:12 04/24/24 22:12 Labs/Radiology: Radiology Impressions Abdomen/Pelvis CT 04/24/24 23:53 IMPRESSION: 1. No bowel obstruction or inflammatory process associated with the bowel. 2. No free air or significant free fluid in the abdomen or pelvis. 3. No evidence of appendicitis. Laboratory Results WBC 9.16 10^3/uL (3.29-11.43) 04/24/24 22:12 RBC 4.57 10^6/uL (3.85-5.65) 04/24/24 22:12 Hgb 13.10 g/dL (11.27-16.99) 04/24/24 22:12 Hct 39.7 % (36-47) 04/24/24 22:12 MCV 86.9 fl (85-98) 04/24/24 22:12 MCH 28.7 pg (27-33) 04/24/24 22:12 MCHC 33.0 g/dL (30-55) 04/24/24 22:12 RDW 12.8 % (12.1-15.1) 04/24/24 22:12 Plt Count 323 10^3/cmm (157-399) 04/24/24 22:12 MPV 9.3 fL (7.4-10.4) 04/24/24 22:12 Neut % (Auto) 63.7 % 04/24/24 22:12 Lymph % (Auto) 29.5 % 04/24/24 22:12 [place] % (Auto) 5.3 % 04/24/24 22:12 Eos % (Auto) 1.1 % 04/24/24 22:12 Baso % (Auto) 0.2 % 04/24/24 22:12 Neut # (Auto) 5.83 10^3/uL (1.8-7.7) 04/24/24 22:12 Lymph # (Auto) 2.7 10^3/uL (0.8-4.8) 04/24/24 22:12 [place] # (Auto) 0.5 10^3/uL (0.2-0.9) 04/24/24 22:12 Eos # (Auto) 0.1 10^3/uL (0.0-0.8) 04/24/24 22:12 Baso # (Auto) 0.0 10^3/uL (0.0-0.1) 04/24/24 22:12 Nucleated RBC % (auto) 0 % 04/24/24 22:12 Nucleated RBCs # 0.0 /100WBC 04/24/24 22:12 Sodium 136 mmol/L (136-145) 04/24/24 22:12 Potassium 3.6 mmol/L (3.5-5.1) 04/24/24 22:12 Chloride 105 mmol/L (98-107) 04/24/24 22:12 Carbon Dioxide 24 mmol/L (22-29) 04/24/24 22:12 Anion Gap 10.6 (5-19) 04/24/24 22:12 BUN 8 mg/dL (6-20) 04/24/24 22:12 Creatinine 0.7 mg/dL (0.5-0.9) 04/24/24 22:12 GFR Calculation 102.0 mL/min (90-130) 04/24/24 22:12 Glucose 90 mg/dL (65-115) 04/24/24 22:12 Calculated Osmolality 280 mOsm/kg (285-295) L 04/24/24 22:12 Calcium 8.9 mg/dL (8.5-10.5) 04/24/24 22:12 Total Bilirubin 0.3 mg/dL (0.15-1.2) 04/24/24 22:12 AST 11 U/L (0-32) 04/24/24 22:12 ALT 10 U/L (0-33) 04/24/24 22:12 Alkaline Phosphatase 79 U/L (35-105) 04/24/24 22:12 Total Protein 6.7 g/dL (6.6-8.7) 04/24/24 22:12 Albumin 3.9 g/dL (3.5-5.2) 04/24/24 22:12 Globulin 2.8 g/dL (1.3-4.6) 04/24/24 22:12 Lipase 21 U/L (13-60) 04/24/24 22:12 HCG, Qual Negative (Negative) 04/24/24 22:12 Urine Color Yellow (Yellow) 04/24/24 23:30 Urine Appearance Slightly cloudy (CLEAR) 04/24/24 23:30 Urine pH 5 (5-7) 04/24/24 23:30 Ur Specific [place] 1.020 (1.005-1.030) 04/24/24 23:30 Urine Protein Neg (Negative) 04/24/24 23:30 Urine Glucose (UA) Norm (Normal) 04/24/24 23:30 Urine Ketones Negative (Negative) 04/24/24 23:30 Urine Blood 2+ (Negative) H 04/24/24 23:30 Urine Nitrate Negative (Negative) 04/24/24 23:30 Urine Bilirubin Neg (Negative) 04/24/24 23:30 Urine Urobilinogen Neg mg/dL (Negative) 04/24/24 23:30 Ur Leukocyte Esterase Negative (Negative) 04/24/24 23:30 Urine RBC 5-10 /hpf (0-2) H 04/24/24 23:30 Urine WBC None /hpf (0-5) 04/24/24 23:30 Ur Squamous Epith Cells 10-15 /hpf (0-5) H 04/24/24 23:30 Amorphous Sediment Not Reportable 04/24/24 23:30 Urine Bacteria 3+ /hpf (NONE) H 04/24/24 23:30 All radiology interpretation(s) finalized by discharge Discharge Plan Discharge Patient Disposition: Home Clinical Impression: Nausea & vomiting Qualifiers: Vomiting type: unspecified Qualified Code(s): R11.2 - Nausea with vomiting, unspecified Abdominal pain Qualifiers: Abdominal location: unspecified location Qualified Code(s): R10.9 - Unspecified abdominal pain Condition: Stable Prescriptions: New ondansetron HCl 4 mg tablet 4 mg PO Q8H PRN (Reason: nausea and vomiting) Qty: 14 0RF No Action acetaminophen [Tylenol Extra Strength] 500 mg tablet 1,000 mg PO BID PRN (Reason: fever or pain) Nexplanon 68 mg implant subdermal topiramate [Topamax] 25 mg tablet 25 mg PO BID Qty: 180 1RF metoprolol tartrate 25 mg tablet 12.5 mg PO BID Qty: 90 1RF duloxetine 60 mg capsule,delayed release(DR/EC) 60 mg PO DAILY Qty: 90 0RF trazodone 50 mg tablet 100 mg PO .HS PRN (Reason: insomnia) Qty: 180 0RF Discharge Orders: Discharge ED (Routine); Ordered 04/25/24 Ordered By: Charlie Coto Referrals: Chana Santacruz DO [Primary Care Provider] - 1 week Patient Instructions: Acute Nausea and Vomiting (DC), Abdominal Pain (ED) Activity Restrictions/Additional Instructions: Your workup in ER included lab work as well as CT scan of your abdomen pelvis did not show any acute abnormalities, you are prescribed a prescription of Zofran to help with the nausea and vomiting. Please follow-up with your family practitioner for the neck 7 days for further evaluation and treatment as needed. Coding Level of Care Code ED [employer] for [facility] Wilson
--- NOTE | 2024-04-24 23:53 | CTR_ITS ---
PROCEDURE INFORMATION: Exam: CT Abdomen And Pelvis Without Contrast Exam date and time: 04/25/2024 12:04 AM Age: 23 years old Clinical indication: Abdominal tenderness; Additional info: Right-sided pain, blood in urine TECHNIQUE: Imaging protocol: Computed tomography of the abdomen and pelvis without contrast. Radiation optimization: All CT scans at this facility use at least one of these dose optimization techniques: automated exposure control; mA and/or kV adjustment per patient size (includes targeted exams where dose is matched to clinical indication); or iterative reconstruction. COMPARISON: CT abdomen pelvis w con* [id number] 08/20/2023 10:44 PM RADIATION DOSE METRICS: Total DLP (mGy-cm): 946.1 FINDINGS: Liver: Normal. No mass. Gallbladder and bile ducts: Normal. No calcified stones. No ductal dilation. Pancreas: Normal. No ductal dilation. Spleen: Normal. No splenomegaly. Adrenal glands: Normal. No mass. Kidneys and ureters: Normal. No hydronephrosis. Stomach and bowel: Unremarkable. No obstruction. No mucosal thickening. Appendix: No evidence of appendicitis. Intraperitoneal space: Unremarkable. No free air. No significant fluid collection. Vasculature: Unremarkable. No abdominal aortic aneurysm. Lymph nodes: Unremarkable. No enlarged lymph nodes. Urinary bladder: Unremarkable as visualized. Reproductive: Unremarkable as visualized. Bones/joints: Unremarkable. No acute fracture. Soft tissues: Unremarkable. CT/CT kidney stone [id number] IMPRESSION: 1. No bowel obstruction or inflammatory process associated with the bowel. 2. No free air or significant free fluid in the abdomen or pelvis. 3. No evidence of appendicitis.
[2024-04-25] MEDS: ketorolac 60 mg/2 mL INJ 30 MG IVP (00:24)
[2024-04-25] MEDS: sodium chloride 0.9% 1,000 ML 999 ML IV (00:25)
[2024-04-25 01:00] VITALS: PULSE 87; RESP 16; O2SAT 97
[2024-04-25 01:20] VITALS: BP 132/83
[2024-04-25 02:48] VITALS: BP 136/74; PULSE 85; O2SAT 99
== END 2024-04-25 02:51 | disposition home or self-care (01) ==
PROVIDERS: Emergency Medicine; Emergency Provider Physician Assistant; PCP Family Medicine
DX: R10.11 Right upper quadrant pain (principal); R10.31 Right lower quadrant pain; R11.2 Nausea with vomiting, unspecified; F17.290 Nicotine dependence, other tobacco product, uncomplicated
CPT/HCPCS: 36415; 74176; 80053; 81001; 83690; 84703; 85025; 96374; 99285; J1885; J7030

== ENCOUNTER → 2024-08-15 18:36 | Outpatient (BNVA) | payer MEDICAID, SELFPAY | PROVIDERS: PCP Family Medicine; Visit Provider Family Medicine | DX: S69.91XA Unspecified injury of right wrist, hand and finger(s), initial encounter (principal); X58.XXXA Exposure to other specified factors, initial encounter | CPT/HCPCS: 73130 ==

== ENCOUNTER 2024-12-11 08:53 | Emergency (ER) | payer MEDICAID, SELFPAY ==
[2024-12-11 09:06] VITALS: BP 125/81; PULSE 99; RESP 16; TEMP 36.6; O2SAT 97; BMI 36.8
[2024-12-11 11:06] LABS: Basophils % 0.2 %; Eosinophils % 0.2 %; Hematocrit 41.9 % (36-47); Lymphocytes # 1.5 10^3/uL (0.8-4.8); Lymphocytes % 14.5 %; Mean Corpuscular HGB Conc 31.5 g/dL (30-55); Mean Corpuscular Hemoglobin 27.8 pg (27-33); Mean Corpuscular Volume 88.4 fl (85-98); Mean Platelet Volume 9.4 fL (7.4-10.4); Monocytes # 0.3 10^3/uL (0.2-0.9); Monocytes % 3.2 %; Neutrophils # 8.55 10^3/uL (1.8-7.7); Neutrophils % 81.6 %; Nucleated Red Blood Cells % 0 %; Platelet Count 300 10^3/cmm (157-399); Red Blood Count 4.74 10^6/uL (3.85-5.65); White Blood Count 10.47 10^3/uL (3.29-11.43)
--- NOTE | 2024-12-11 11:15 | PC.PHAR ---
Addendum entered by Rosemary Juan 12/11/24 11:23: Pt uses [facility] and [facility]. Addendum entered by Rosemary Juan 12/11/24 11:20: Verified last fill dates with Ashutosh NELSON. Original Note: Pt states she takes all the medications on her list, yet Ashutosh shows last fill 01/06/2024.
[2024-12-11 11:23] LABS: Alanine Aminotransferase 12 U/L (0-33); Albumin Level 3.8 g/dL (3.5-5.2); Alkaline Phosphatase 66 U/L (35-105); Aspartate Amino Transferase 13 U/L (0-32); Blood Urea Nitrogen 9 mg/dL (6-20); Calcium 8.8 mg/dL (8.5-10.5); Carbon Dioxide 20 mmol/L (22-29); Chloride 102 mmol/L (98-107); Creatinine Clr Calc Pharmacy 214.2502; Globulin 3.1 g/dL (1.3-4.6); Glomerular Filtration Rate 149.1 mL/min (90-130); Glucose 111 mg/dL (65-115); Osmolality Calculated 277 mOsm/kg (285-295); Sodium 134 mmol/L (136-145); Total Bilirubin 0.4 mg/dL (0.15-1.2); Total Protein 6.9 g/dL (6.6-8.7)
--- NOTE | 2024-12-11 11:49 | W.ED.FEMALGU ---
HPI - Female Genitourinary General: Chief complaint: Urogenital-Female Stated complaint: rt side pain Time Seen by Provider: 12/11/24 08:59 Source: patient Mode of arrival: ambulatory Limitations: no limitations History of Present Illness: Patient is a 24-year-old female presents to ED today with a complaint of dysuria and abdominal pain. Patient states she has had symptoms many times previously. She states she has never been diagnosed with a kidney stone. She states she normally gets placed on antibiotics and her symptoms go away. She is unsure if she has ever had a urinary culture. Patient has noticed color change to her urine but states she has been taking [id number] Azo. She is not having any flank pain. No vomiting. No fevers. She has a hormonal implant this does not have menstrual cycles. She has not been sexually active in 3 years this has no concerns of STI. She has no vaginal discharge or vaginal odor. MD elicited complaint: dysuria and UTI Pertinent past history: recurrent UTIs Onset (ago): day(s) Severity: moderate Female Urogenital Radiation: Suprapubic Quality of pain: sharp Consistency: constant (improves after taking azo) Vaginal discharge: none Vaginal bleeding: none Urinary symptoms: Dysuria Exacerbating factors: none Relieving factors: other (otc azo) Associated symptoms: Reports abdominal pain; Deny nausea Treatment prior to arrival: none Sexual activity: No Patient : No Related Data Home Medications ?Medication ?Instructions ?Recorded ?Confirmed acetaminophen 500 mg tablet 1,000 mg PO BID PRN fever or pain 03/01/22 12/11/24 (Tylenol Extra Strength) etonogestrel 68 mg subdermal 1 implant subdermal .5YEAR 05/03/22 12/11/24 implant (Nexplanon) trazodone 50 mg tablet 100 mg PO BEDTIME PRN insomnia 12/11/24 12/11/24 Previous Rx's ?Medication ?Instructions ?Recorded metoprolol tartrate 25 mg tablet 12.5 mg (1/2 x 25 mg) PO BID #90 08/28/24 tabs topiramate 25 mg tablet (Topamax) 25 mg PO BID #180 tabs 08/28/24 duloxetine 60 mg capsule,delayed 60 mg PO DAILY #30 caps 10/09/24 release ciprofloxacin HCl 500 mg tablet 500 mg PO Q12H #14 tabs 12/11/24 (Cipro) Allergies Allergy/AdvReac Type Severity Reaction Status Date / Time promethazine (From Phenergan) Allergy ADR-Faintin Verified 12/11/24 09:06 g Review of Systems Const: Denies: fever(s), chills, body aches, fatigue or malaise Card: Denies: chest pain Resp: Denies: dyspnea GI: Reports: abdominal pain; Denies: nausea, vomiting, diarrhea or change in bowel habits : Reports: dysuria; Denies: flank pain, difficulty voiding, dribbling, nocturia, genital lesions, genital pruritis, vaginal odor or vaginal bleeding Musc: Denies: back pain Skin/Breast: Denies: rash Neuro: Denies: dizziness PFSH ED PFSH: Medical History Sinus tachycardia on metoprolol; had heart monitor Presence of subdermal contraceptive implant Nexplanon 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 Surgical History History of tonsillectomy Family History Grandmother Diabetes paternal Hypertension paternal Breast cancer, Onset Age: 56 paternal Liver cancer Father Hyperlipidemia Hypertension Denies family history of Colon cancer Ovarian cancer Clotting disorder Heart disease Anesthesia complication Bleeding disorder Uterine cancer Thyroid disease Stroke Social History Smoking and tobacco/nicotine status: never used tobacco/nicotine Quit status (tobacco/nicotine): not considering quitting Second hand smoke exposure: No Alcohol intake: never Substance/Drug Use: never Household members: family Marital status: Single Number of children: 0 Highest education level completed: Some College, No Degree Current occupational status: employed Current occupation: [employer] Physical Exam Const: COMMON NORMALS: no acute distress, patient oriented x3, no limitations, alert and well nourished GENERAL APPEARANCE: cooperative Resp: COMMON NORMALS: normal respiratory effort and clear to auscultation bilaterally AUSCULTATION: clear to auscultation bilaterally Cardio: COMMON NORMALS: regular rate and regular rhythm RATE: regular rate RHYTHM: regular rhythm GI: COMMON NORMALS: Normal to inspection, nondistended, normoactive bowel sounds present, Soft to palpation, No hepatosplenomegaly present and no masses INSPECTION: Yes normal to inspection AUSCULTATION: Yes normoactive bowel sounds PALPATION: Yes Soft to palpation, Yes Tenderness to palpation present (GI) (suprapubic) and Yes No hepatosplenomegaly present : COMMON NORMALS: Yes no CVA tenderness BLADDER/KIDNEY EXAM: Yes no CVA tenderness Back/Pelvis: COMMON NORMALS: no CVA tenderness Neuro: COMMON NORMALS: patient oriented x3 SENSORIUM/ORIENTATION: Yes alert Course Vital Signs: Vital signs: Vital Signs Temperature 97.9 F 12/11/24 09:06 Pulse Rate 85 12/11/24 11:56 Respiratory Rate 16 12/11/24 11:56 Blood Pressure 118/73 12/11/24 11:56 Pulse Oximetry 99 12/11/24 11:56 MDM - Female Medical Decision Making Patient appears no acute distress. Vital signs are stable. Blood work shows a normal white count. UA with significant color interference from her Azo use. They were not able to run a nitrate or leukocyte esterase. She does have 21-[address] on antibiotics for possible hemorrhagic cystitis. Will attempt urine culture. Discussed possible CT renal protocol however patient states she has had CT scans in the past that do not show calculi. I think this time is reasonable to treat her with oral antibiotics and give her return precautions in case symptoms worsen or fail to improve. Medical Records I reviewed the patient's medical records. Lab Data I reviewed the patient's lab results. 12/11/24 11:00 12/11/24 11:00 Laboratory Results WBC 10.47 10^3/uL (3.29-11.43) 12/11/24 11:00 RBC 4.74 10^6/uL (3.85-5.65) 12/11/24 11:00 Hgb 13.20 g/dL (11.27-16.99) 12/11/24 11:00 Hct 41.9 % (36-47) 12/11/24 11:00 MCV 88.4 fl (85-98) 12/11/24 11:00 MCH 27.8 pg (27-33) 12/11/24 11:00 MCHC 31.5 g/dL (30-55) 12/11/24 11:00 RDW 13.0 % (12.1-15.1) 12/11/24 11:00 Plt Count 300 10^3/cmm (157-399) 12/11/24 11:00 MPV 9.4 fL (7.4-10.4) 12/11/24 11:00 Neut % (Auto) 81.6 % 12/11/24 11:00 Lymph % (Auto) 14.5 % 12/11/24 11:00 [place] % (Auto) 3.2 % 12/11/24 11:00 Eos % (Auto) 0.2 % 12/11/24 11:00 Baso % (Auto) 0.2 % 12/11/24 11:00 Neut # (Auto) 8.55 10^3/uL (1.8-7.7) H 12/11/24 11:00 Lymph # (Auto) 1.5 10^3/uL (0.8-4.8) 12/11/24 11:00 [place] # (Auto) 0.3 10^3/uL (0.2-0.9) 12/11/24 11:00 Eos # (Auto) 0.0 10^3/uL (0.0-0.8) 12/11/24 11:00 Baso # (Auto) 0.0 10^3/uL (0.0-0.1) 12/11/24 11:00 Nucleated RBC % (auto) 0 % 12/11/24 11:00 Nucleated RBCs # 0.0 /100WBC 12/11/24 11:00 Sodium 134 mmol/L (136-145) L 12/11/24 11:00 Potassium 4.0 mmol/L (3.5-5.1) 12/11/24 11:00 Chloride 102 mmol/L (98-107) 12/11/24 11:00 Carbon Dioxide 20 mmol/L (22-29) L 12/11/24 11:00 Anion Gap 16.0 (5-19) 12/11/24 11:00 BUN 9 mg/dL (6-20) 12/11/24 11:00 Creatinine 0.5 mg/dL (0.5-0.9) 12/11/24 11:00 GFR Calculation 149.1 mL/min (90-130) H 12/11/24 11:00 Glucose 111 mg/dL (65-115) 12/11/24 11:00 Calculated Osmolality 277 mOsm/kg (285-295) L 12/11/24 11:00 Calcium 8.8 mg/dL (8.5-10.5) 12/11/24 11:00 Total Bilirubin 0.4 mg/dL (0.15-1.2) 12/11/24 11:00 AST 13 U/L (0-32) 12/11/24 11:00 ALT 12 U/L (0-33) 12/11/24 11:00 Alkaline Phosphatase 66 U/L (35-105) 12/11/24 11:00 Total Protein 6.9 g/dL (6.6-8.7) 12/11/24 11:00 Albumin 3.8 g/dL (3.5-5.2) 12/11/24 11:00 Globulin 3.1 g/dL (1.3-4.6) 12/11/24 11:00 HCG, Qual Negative (Negative) 12/11/24 11:37 Urine Color [place] (Yellow) A 12/11/24 11:37 Urine Appearance Slightly cloudy (CLEAR) 12/11/24 11:37 Urine pH TNP 12/11/24 11:37 Ur Specific [place] TNP 12/11/24 11:37 Urine Protein TNP 12/11/24 11:37 Urine Glucose (UA) TNP 12/11/24 11:37 Urine Ketones TNP 12/11/24 11:37 Urine Blood TNP 12/11/24 11:37 Urine Nitrate TNP 12/11/24 11:37 Urine Bilirubin TNP 12/11/24 11:37 Urine Urobilinogen TNP 12/11/24 11:37 Ur Leukocyte Esterase TNP 12/11/24 11:37 Urine RBC 21-50 /hpf (0-2) H 12/11/24 11:37 Urine WBC 0-5 /hpf (0-5) 12/11/24 11:37 Ur Squamous Epith Cells 0-5 /hpf (0-5) 12/11/24 11:37 Amorphous Sediment Not Reportable 12/11/24 11:37 Urine Bacteria None seen /hpf (NONE) 12/11/24 11:37 Hyaline Casts 0-4 /lpf H 12/11/24 11:37 No radiology studies performed this visit Discharge Plan Discharge Patient Disposition: Home Clinical Impression: Dysuria Condition: Stable Prescriptions: New ciprofloxacin HCl [Cipro] 500 mg tablet 500 mg PO Q12H Qty: 14 0RF No Action acetaminophen [Tylenol Extra Strength] 500 mg tablet 1,000 mg PO BID PRN (Reason: fever or pain) Nexplanon 68 mg implant 1 implant subdermal .5YEAR duloxetine 60 mg capsule,delayed release(DR/EC) 60 mg PO DAILY Qty: 30 11RF metoprolol tartrate 25 mg tablet 12.5 mg PO BID Qty: 90 1RF topiramate [Topamax] 25 mg tablet 25 mg PO BID Qty: 180 1RF trazodone 50 mg tablet 100 mg PO BEDTIME PRN (Reason: insomnia) Discharge Orders: Discharge ED (Routine); Ordered 12/11/24 Ordered By: Miguelina Duenas Referrals: Devora Oviedo MD [Primary Care Provider] - Activity Restrictions/Additional Instructions: As we discussed, monitor symptoms closely. You need to return to the emergency department for onset of flank pain/back pain, severe abdominal pain, repetitive episodes of vomiting, inability to hold down your antibiotics, fevers, generally feeling worse or unwell, or any other concerns you may have. Print Language: Bulgarian Coding Level of Care Code ED Vice President Of Communications for Caroline Wilson
[2024-12-11 11:56] VITALS: BP 118/73; PULSE 85; RESP 16; O2SAT 99
[2024-12-11 11:58] LABS: HCG Qualitative Urine. Negative (Negative); Urine Color Orange (Yellow)
[2024-12-11 11:59] LABS: Add Urine Microscopic? YES; Bacteria Urine None Seen /hpf; Hyaline Casts Urine 0-4 /lpf; RBC Urine 21-50 /hpf (0-2); Squamous Epithelial Cell Urine 0-5 /hpf (0-5); Urine Appearance Slightly Cloudy (CLEAR); WBC Urine 0-5 /hpf (0-5)
[2024-12-11 12:18] VITALS: BP 118/73; PULSE 70; RESP 16; O2SAT 99
== END 2024-12-11 12:21 | disposition home or self-care (01) ==
PROVIDERS: Emergency Provider Physician Assistant; PCP Family Medicine
DX: R30.0 Dysuria (principal)
CPT/HCPCS: 36415; 80053; 81001; 81025; 85025; 87086; 99283

== ENCOUNTER → 2025-02-14 09:59 | Outpatient (BNVA) | payer MEDICAID, SELFPAY | PROVIDERS: PCP Family Medicine; Visit Provider Family Medicine | DX: R31.9 Hematuria, unspecified (principal) | CPT/HCPCS: 81000; 87086 ==

== ENCOUNTER 2025-02-26 16:42 | Outpatient (CLI) | payer MEDICAID, SELFPAY ==
--- NOTE | 2025-02-26 17:15 | CT_ITS ---
WS: [id number] CT ABDOMEN AND PELVIS NONCONTRAST HISTORY: hematuria recurrently TECHNIQUE: Imaging performed through the abdomen and pelvis. Coronal and sagittal reformats are submitted. All CT scans at [facility] use at least one of these dose optimization techniques: automated exposure control; mA and/or kV adjustment per patient size (includes targeted exams where dose is matched to clinical indication); or iterative reconstruction. DLP: 763.31 mGy.cm COMPARISON: 04/25/2024 Lower thorax: Lung bases are clear. Visualized heart is normal. No hiatal hernia. Liver: Normal size liver. No mass or bile duct dilatation. Gallbladder: Significantly contracted gallbladder. Tiny focus of increased attenuation within the gallbladder lumen. No adjacent pericholecystic fluid. Pancreas: Normal size and attenuation. Normal pancreatic duct. No pancreatitis or mass. Spleen: Normal. Adrenal glands: Normal. No mass. Right kidney: Normal size kidney with no mass or hydronephrosis. Left kidney: Normal size kidney with no mass or hydronephrosis. Aorta: Normal abdominal aorta, no aneurysm or atherosclerosis. No free fluid, intraperitoneal air or significant lymphadenopathy. GI tract: Normal noncontrast imaging of the stomach, small bowel and colon. No obstruction or wall thickening. Normal appendix. Abdominal wall: Negative. No hernia. Pelvis: Normal size midline uterus. LEFT ovarian cyst 3.4 cm. Previously described RIGHT ovarian cyst has resolved since 04/25/2024. Osseous structures: Unremarkable. CT/CT abdomen pelvis wo con [id number] IMPRESSION: 1. Contracted gallbladder with cholelithiasis. No evidence for acute cholecyst itis. 2. No renal obstruction or calcification. No ureteral calcification. 3. Normal appendix. 4. Small simple LEFT ovarian cyst, 3.4 cm.
== END 2025-02-26 16:43 | disposition home or self-care (01) ==
PROVIDERS: PCP Family Medicine; Visit Provider Family Medicine
DX: R31.9 Hematuria, unspecified (principal); K80.20 Calculus of gallbladder without cholecystitis without obstruction; N83.292 Other ovarian cyst, left side
CPT/HCPCS: 74176

== ENCOUNTER 2025-09-27 12:45 | Emergency (ER) | payer MEDICAID, SELFPAY ==
[2025-09-27 12:50] VITALS: BP 122/75; PULSE 89; RESP 18; TEMP 36.8; O2SAT 98
--- NOTE | 2025-09-27 13:17 | CT_ITS ---
WS: [id number] CT ABDOMEN PELVIS TECHNIQUE: Contrast-enhanced CT of the abdomen and pelvis with coronal and sagittal reformatted images. CLINICAL INFORMATION: recent amita; nausea/chills/hot, abdominal pain COMPARISON: CT 02/26/2025 DLP: 1049.[address] scans at [facility] use at least one of these dose optimization techniques: automated exposure control; mA and/or kV adjustment per patient size (includes targeted exams where dose is matched to clinical indication); or iterative reconstruction. FINDINGS: Recent cholecystectomy. No evidence of fluid collection or abscess in the gallbladder fossa. Normal postoperative recent cholecystectomy. Normal appendix in the RIGHT lower quadrant. Diffuse thickening and inflammatory stranding involving the RIGHT colon hepatic flexure with enhancement. This extends into the transverse colon suspicious for colitis. This is likely infectious or inflammatory. Recommend correlation with clinical symptoms. RIGHT ovarian cyst measuring 3.3 x 2.6 cm. No hydronephrosis. Small LEFT renal cyst. No evidence of common bile duct dilatation. Normal caliber abdominal aorta. Celiac and SMA are patent.. Evidence of gastritis and duodenitis. Fatty liver. Normal portal vein and splenic vein. Normal spleen. Normal GE junction. CT/CT abdomen pelvis w con* [id number] IMPRESSION: 1. Reported recent cholecystectomy. No evidence of drainable fluid collection or abscess. 2. Evidence of infectious or inflammatory colitis involving the RIGHT colon wo rse at the hepatic flexure extending into the transverse colon. Recommend corre lation with infectious symptoms. 3. RIGHT ovarian cyst measuring 3.3 x 2.6 cm. 4. Evidence of gastritis and duodenitis. 5. Common bile duct appears normal.
--- NOTE | 2025-09-27 13:18 | W.ED.GENADLT ---
HPI - General Adult General: Chief complaint: General Medical Stated complaint: Post surgey 09/20 Cramping ABD N Time Seen by Provider: 09/27/25 13:10 Source: patient Mode of arrival: ambulatory Limitations: no limitations History of Present Illness: Patient is a 25-year-old female presents to ED today for medical evaluation. Patient states she underwent an elective cholecystectomy a week ago by Dr. Chery in [place]. Patient states she was doing good following the surgery until a few days ago when she began developing severe nausea. She is also having abdominal cramping. She is currently on her menstrual cycle. She is also reporting chills and hot flashes. She states overall she is having body aches and just does not feel right . Patient states follow-up with her surgeon is not until early next month. No documented fevers. Onset (ago): day(s) Severity: moderate Pain Consistency: constant Relieving factors: none Exacerbating factors: none Associated symptoms: Reports nausea; Deny chest pain, dyspnea or headache(s) Treatments prior to arrival: none Related Data Home Medications ?Medication ?Instructions ?Recorded ?Confirmed acetaminophen 500 mg tablet 1,000 mg PO BID PRN fever or pain 03/01/22 09/27/25 (Tylenol Extra Strength) etonogestrel 68 mg subdermal 1 implant subdermal .5YEAR 05/03/22 09/27/25 implant (Nexplanon) ondansetron HCl 4 mg tablet 4 mg PO Q6H PRN Nausea 09/27/25 09/27/25 oxycodone 5 mg tablet 5 mg PO Q6H PRN Pain 09/27/25 09/27/25 Previous Rx's ?Medication ?Instructions ?Recorded albuterol sulfate 90 mcg/actuation 2 puff inhalation Q6H PRN 01/28/25 aerosol inhaler shortness of breath or wheezing #8.5 grams trazodone 50 mg tablet 100 mg (2 x 50 mg) PO BEDTIME PRN 03/11/25 insomnia #60 tabs metoprolol tartrate 25 mg tablet 12.5 mg (1/2 x 25 mg) PO BID #90 08/16/25 tabs topiramate 25 mg tablet (Topamax) 25 mg PO BID #180 tabs 08/16/25 amoxicillin 875 mg-potassium 1 tab PO BID #14 tabs 09/27/25 clavulanate 125 mg tablet ondansetron 4 mg disintegrating 4 mg PO Q8H PRN nausea and 09/27/25 tablet vomiting #14 tabs prednisone 10 mg tablet 10 mg PO DAILY 7 days #27 tabs 09/27/25 Allergies Allergy/AdvReac Type Severity Reaction Status Date / Time promethazine (From Phenergan) Allergy ADR-Faintin Verified 08/16/25 11:28 g Review of Systems Const: Reports: chills, body aches and change in appetite; Denies: fever(s) Eyes: Denies: change in vision or yellow eyes ENMT: Denies: throat pain or odynophagia Card: Denies: chest pain Resp: Denies: dyspnea GI: Reports: abdominal pain and nausea; Denies: hematemesis, change in bowel habits, hematochezia or melena : Denies: flank pain, dysuria or hematuria Musc: Denies: back pain Skin/Breast: Reports: other (denies yellowing to skin/eyes) Neuro: Denies: headache(s), numbness in extremities, weakness in extremities or sensory changes PFSH ED PFSH: Medical History Cholelithiasis on CT scan; recurrent RUQ pain Hematuria gross; has been to ER several times; [facility] did neg cystoscopy Sinus tachycardia on metoprolol; had heart monitor Presence of subdermal contraceptive implant Nexplanon 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 [facility] Surgical History History of tonsillectomy Family History Grandmother Diabetes paternal Hypertension paternal Breast cancer, Onset Age: 56 paternal Liver cancer Father Hyperlipidemia Hypertension Denies family history of Colon cancer Ovarian cancer Clotting disorder Heart disease Anesthesia complication Bleeding disorder Uterine cancer Thyroid disease Stroke Social History Smoking and tobacco/nicotine status: current every day tobacco/nicotine user e-cigarettes E-Cigarette Details: vaporizer device and with nicotine E-cig/vape details: Refill/4 days. Quit status (tobacco/nicotine): not considering quitting Second hand smoke exposure: No Alcohol intake: never Substance/Drug Use: never Household members: family Marital status: Single Number of children: 0 Highest education level completed: Some College, No Degree Current occupational status: employed Current occupation: [employer] Physical Exam Const: COMMON NORMALS: no acute distress, patient oriented x3, no limitations, alert and well nourished GENERAL APPEARANCE: cooperative NUTRITIONAL APPEARANCE: obese (BMI 39.2) ORIENTATION/CONSCIOUSNESS: Yes awake, Yes oriented to person, Yes oriented to place and Yes oriented to time HENMT: COMMON NORMALS: normocephalic and atraumatic HEAD & SCALP: normal to inspection, normocephalic and atraumatic Eye: COMMON NORMALS: no scleral icterus GENERAL EYE: appearance normal, both eyes and all related structures Neck/C-Spine: COMMON NORMALS: full ROM, no lymphadenopathy, supple and no meningeal signs Chest: COMMONS NORMALS: normal inspection of the chest Resp: COMMON NORMALS: normal respiratory effort and clear to auscultation bilaterally AUSCULTATION: clear to auscultation bilaterally Cardio: COMMON NORMALS: regular rate and regular rhythm RATE: regular rate RHYTHM: regular rhythm GI: COMMON NORMALS: Normal to inspection, nondistended, normoactive bowel sounds present and Soft to palpation INSPECTION: Yes normal to inspection (surgical incisions appear clean/healing) AUSCULTATION: Yes normoactive bowel sounds PALPATION: Yes Soft to palpation, Yes Tenderness to palpation present (GI) (diffuse abdominal tenderness), No Guarding due to palpation present (GI) and No Rigid due to palpation : COMMON NORMALS: Yes no CVA tenderness BLADDER/KIDNEY EXAM: Yes no CVA tenderness Back/Pelvis: COMMON NORMALS: no CVA tenderness and thoracic and lumbar spine normal to inspection Extremity: COMMON NORMALS: normal to inspection, capillary refill normal, no clubbing, cyanosis or edema, no calf tenderness and no pedal edema GENERAL: Yes normal exam except as noted Neuro: MANDIE COMA SCALE: document GCS findings [place] coma scale eye opening: Spontaneous [place] coma scale verbal response: Orientated Mandie coma scale motor response: Obey commands Mandie coma scale total score: 15 COMMON NORMALS: patient oriented x3 SENSORIUM/ORIENTATION: Yes alert, Yes oriented to person, Yes oriented to place and Yes oriented to time MENINGEAL SIGNS: Yes no meningeal signs Skin: COMMON NORMALS: no rashes or lesions noted GENERAL SKIN EXAM: no rashes or lesions noted Course Vital Signs: Vital signs: Vital Signs Temperature 98.2 F 09/27/25 12:50 Pulse Rate 78 09/27/25 15:40 Respiratory Rate 16 09/27/25 15:40 Blood Pressure 107/82 09/27/25 15:40 Pulse Oximetry 98 09/27/25 15:40 Oxygen Delivery Me thod Room Air 09/27/25 13:43 MDM - General Adult Medical Decision Making Patient here 1 week postop cholecystectomy here for complaints of abdominal pain and cramping as well as feeling hot/cold and nausea. Upon arrival, her vital signs are stable. She is not tachycardic, hypotensive, or febrile. She does report currently being on her menstrual cycle which could explain some of the cramping. Blood work showing a white count of 13.02. This probably is normal 1 week postop. Her chemistry panel showing a normal tbili and normal LFTs. Her lipase is normal. Urine does not appear infected. Has a small amount of blood most likely contaminant from her menstrual cycle. CT scan showing no reported complication from her recent cholecystectomy. There is evidence of transverse and right colitis. Will place her on antibiotics/steroids for this. Will give her something to help with the nausea. She can follow-up with primary care as well as general surgery as scheduled. Return preacautions discussed. Medical Records I reviewed the patient's medical records. Lab Data I reviewed the patient's lab results. 09/27/25 13:46 09/27/25 13:46 Radiology Impressions Abdomen/Pelvis CT 09/27/25 13:17 IMPRESSION: 1. Reported recent cholecystectomy. No evidence of drainable fluid collection or abscess. 2. Evidence of infectious or inflammatory colitis involving the RIGHT colon worse at the hepatic flexure extending into the transverse colon. Recommend correlation with infectious symptoms. 3. RIGHT ovarian cyst measuring 3.3 x 2.6 cm. 4. Evidence of gastritis and duodenitis. 5. Common bile duct appears normal. Laboratory Results WBC 13.02 10^3/uL (3.29-11.43) H 09/27/25 13:46 RBC 4.73 10^6/uL (3.85-5.65) 09/27/25 13:46 Hgb 13.40 g/dL (11.27-16.99) 09/27/25 13:46 Hct 41.2 % (36-47) 09/27/25 13:46 MCV 87.1 fl (85-98) 09/27/25 13:46 MCH 28.3 pg (27-33) 09/27/25 13:46 MCHC 32.5 g/dL (30-55) 09/27/25 13:46 RDW 13.2 % (12.1-15.1) 09/27/25 13:46 Plt Count 316 10^3/cmm (157-399) 09/27/25 13:46 MPV 9.4 fL (7.4-10.4) 09/27/25 13:46 Neut % (Auto) 87.6 % 09/27/25 13:46 Lymph % (Auto) 8.2 % 09/27/25 13:46 [place] % (Auto) 3.3 % 09/27/25 13:46 Eos % (Auto) 0.4 % 09/27/25 13:46 Baso % (Auto) 0.2 % 09/27/25 13:46 Neut # (Auto) 11.40 10^3/uL (1.8-7.7) H 09/27/25 13:46 Lymph # (Auto) 1.1 10^3/uL (0.8-4.8) 09/27/25 13:46 [place] # (Auto) 0.4 10^3/uL (0.2-0.9) 09/27/25 13:46 Eos # (Auto) 0.1 10^3/uL (0.0-0.8) 09/27/25 13:46 Baso # (Auto) 0.0 10^3/uL (0.0-0.1) 09/27/25 13:46 Nucleated RBC % (auto) 0 % 09/27/25 13:46 Nucleated RBCs # 0.0 /100WBC 09/27/25 13:46 Sodium 139 mmol/L (136-145) 09/27/25 13:46 Potassium 4.0 mmol/L (3.5-5.1) 09/27/25 13:46 Chloride 105 mmol/L (98-107) 09/27/25 13:46 Carbon Dioxide 20 mmol/L (22-29) L 09/27/25 13:46 Anion Gap 18.0 (5-19) 09/27/25 13:46 BUN 9 mg/dL (6-20) 09/27/25 13:46 Creatinine 0.6 mg/dL (0.5-0.9) 09/27/25 13:46 GFR Calculation 119.9 mL/min (90-130) 09/27/25 13:46 Glucose 99 mg/dL (65-115) 09/27/25 13:46 Calculated Osmolality 287 mOsm/kg (285-295) 09/27/25 13:46 Calcium 9.5 mg/dL (8.5-10.5) 09/27/25 13:46 Total Bilirubin 0.7 mg/dL (0.15-1.2) 09/27/25 13:46 AST 14 U/L (0-32) 09/27/25 13:46 ALT 19 U/L (0-33) 09/27/25 13:46 Alkaline Phosphatase 67 U/L (35-105) 09/27/25 13:46 Total Protein 7.7 g/dL (6.6-8.7) 09/27/25 13:46 Albumin 4.2 g/dL (3.5-5.2) 09/27/25 13:46 Globulin 3.5 g/dL (1.3-4.6) 09/27/25 13:46 Lipase 18 U/L (13-60) 09/27/25 13:46 HCG, Qual Negative (Negative) 09/27/25 13:46 Urine Color Yellow (Yellow) 09/27/25 15:07 Urine Appearance Clear (CLEAR) 09/27/25 15:07 Urine pH 6.0 (5-7) 09/27/25 15:07 Ur Specific [place] >= 1.099 (1.005-1.030) H 09/27/25 15:07 Urine Protein Trace (Negative) A 09/27/25 15:07 Urine Glucose (UA) Negative (Normal) 09/27/25 15:07 Urine Ketones 2+ (Negative) H 09/27/25 15:07 Urine Blood 1+ (Negative) A 09/27/25 15:07 Urine Nitrate Negative (Negative) 09/27/25 15:07 Urine Bilirubin Negative (Negative) 09/27/25 15:07 Urine Urobilinogen 1.0 mg/dL (Negative) 09/27/25 15:07 Ur Leukocyte Esterase Negative (Negative) 09/27/25 15:07 Urine RBC 11-20 /hpf (0-2) H 09/27/25 15:07 Urine WBC 0-5 /hpf (0-5) 09/27/25 15:07 Ur Squamous Epith Cells 0-5 /hpf (0-5) 09/27/25 15:07 Amorphous Sediment Not Reportable 09/27/25 15:07 Urine Bacteria None seen /hpf (NONE) 09/27/25 15:07 Hyaline Casts 0-4 /lpf H 09/27/25 15:07 Influenza A (PCR) Negative (Negative) 09/27/25 14:12 Influenza Type B (PCR) Negative (Negative) 09/27/25 14:12 RSV (PCR) Negative (Negative) 09/27/25 14:12 SARS-CoV-2 (PCR) Negative (Negative) 09/27/25 14:12 All radiology interpretation(s) finalized by discharge Discharge Plan Discharge Patient Disposition: Home Clinical Impression: Colitis Condition: Stable Prescriptions: New prednisone 10 mg tablet 10 mg PO DAILY 7 Days Qty: 27 0RF Rx Instructions: 6 tabs on days 1-2, 5 tabs on days 3, 4 tabs on day 4, 3 tabs on day 5, 2 tabs on day 6, 1 tab on day 7 amoxicillin-pot clavulanate 875-125 mg tablet 1 tab PO BID Qty: 14 0RF ondansetron 4 mg tablet,disintegrating 4 mg PO Q8H PRN (Reason: nausea and vomiting) Qty: 14 0RF No Action acetaminophen [Tylenol Extra Strength] 500 mg tablet 1,000 mg PO BID PRN (Reason: fever or pain) Nexplanon 68 mg implant 1 implant subdermal .5YEAR trazodone 50 mg tablet 100 mg PO BEDTIME PRN (Reason: insomnia) Qty: 60 11RF albuterol sulfate 90 mcg/actuation HFA aerosol inhaler 2 puff inhalation Q6H PRN (Reason: shortness of breath or wheezing) Qty: 8.5 0RF topiramate [Topamax] 25 mg tablet 25 mg PO BID Qty: 180 1RF metoprolol tartrate 25 mg tablet 12.5 mg PO BID Qty: 90 1RF ondansetron HCl 4 mg Tablet 4 mg PO Q6H PRN (Reason: Nausea) oxycodone 5 mg tablet 5 mg PO Q6H PRN (Reason: Pain) Discharge Orders: Discharge ED (Routine); Ordered 09/27/25 Ordered By: Miguelina Duenas Referrals: Devora Oviedo MD [Primary Care Provider, Family Practice] Patient Instructions: Patient Portal & Sly Instructions Activity Restrictions/Additional Instructions: You may follow-up with general surgery as scheduled. You may follow-up with primary care in the meantime. I would like you to do a bland liquid diet and slowly advance to soft foods and then advance past that as tolerated. You return to the emergency department for worsening symptoms. Print Language: Turkmen Coding Level of Care Code ED [facility] for Caroline Wilson
[2025-09-27 13:43] VITALS: BP 107/82; PULSE 84; RESP 16; O2SAT 97
[2025-09-27 13:57] LABS: Hematocrit 41.2 % (36-47); Hemoglobin 13.40 g/dL (11.27-16.99); Mean Corpuscular HGB Conc 32.5 g/dL (30-55); Mean Corpuscular Hemoglobin 28.3 pg (27-33); Mean Corpuscular Volume 87.1 fl (85-98); Nucleated Red Blood Cells % 0 %; Platelet Count 316 10^3/cmm (157-399); Red Blood Count 4.73 10^6/uL (3.85-5.65); White Blood Count 13.02 10^3/uL (3.29-11.43)
[2025-09-27 14:08] LABS: HCG, Serum Qual Negative (Negative)
[2025-09-27] MEDS: ondansetron 2 mg/ML SDV 2 mL 4 MG IVP (14:08)
[2025-09-27 14:17] LABS: Alanine Aminotransferase 19 U/L (0-33); Albumin Level 4.2 g/dL (3.5-5.2); Alkaline Phosphatase 67 U/L (35-105); Anion Gap 18.0 (5-19); Aspartate Amino Transferase 14 U/L (0-32); Blood Urea Nitrogen 9 mg/dL (6-20); Calcium 9.5 mg/dL (8.5-10.5); Carbon Dioxide 20 mmol/L (22-29); Chloride 105 mmol/L (98-107); Globulin 3.5 g/dL (1.3-4.6); Glucose 99 mg/dL (65-115); Lipase 18 U/L (13-60); Osmolality Calculated 287 mOsm/kg (285-295); Potassium 4.0 mmol/L (3.5-5.1); Sodium 139 mmol/L (136-145); Total Protein 7.7 g/dL (6.6-8.7)
[2025-09-27] MEDS: iohexol 350 mg/mL 500 mL Btl (per mL) IV (14:21)
[2025-09-27 15:13] LABS: Respiratory Syncytial Virus Ce NEGATIVE (Negative); SARS-CoV-2 PCR NEGATIVE (Negative)
[2025-09-27 15:31] LABS: Glucose Urine UA Negative (Normal); Nitrate Urine Negative (Negative)
[2025-09-27 15:33] LABS: Add Urine Microscopic? YES
[2025-09-27 15:34] LABS: Specific Gravity, Urine >= 1.099 (1.005-1.030)
[2025-09-27 15:40] VITALS: BP 107/82; PULSE 78; RESP 16; O2SAT 98
== END 2025-09-27 16:36 | disposition home or self-care (01) ==
PROVIDERS: Emergency Provider Physician Assistant; PCP Family Medicine
DX: K52.9 Noninfective gastroenteritis and colitis, unspecified (principal); Z11.52 Encounter for screening for COVID-19; F17.290 Nicotine dependence, other tobacco product, uncomplicated
CPT/HCPCS: 36415; 74177; 80053; 81001; 83690; 84703; 85025; 87086; 87637; 96361; 96374; 99285; J2405; J7030